=== PATIENT | female | born 1935 ===

== ENCOUNTER 2018-10-30 05:20 | Day surgery (SDC) | payer OTHER ==
[~2018-10-30 05:20] MED LIST: AMLODIPINE-BEN1 EAC2; COZAAR25 MG PO; GABAPENTIN100 MG PO; SYNTHROID88 MCG PO; ZOCOR20 MG
[2018-10-30] MEDS ORDERED: MACROBID 100 M100 MG PO (10:56)
[2018-10-30] MEDS ORDERED: ULTRACET PO (10:56)
== END 2018-10-30 16:00 | disposition home or self-care (01) ==
LOC: CIR.AMB 05:20
DX: N81.3 Complete uterovaginal prolapse (principal)